=== PATIENT | female | born 1970 | race Two or more races ===

== ENCOUNTER 2024-09-11 09:16 | Outpatient (AMB) | payer OTHER, SELFPAY ==
[2024-09-11 09:48] VITALS: BP 137/87; PULSE 18; RESP 18; TEMP 36.2; O2SAT 98; BMI 24.7
--- NOTE | 2024-09-11 09:48 | AMB.GYNCLNOT ---
Vital Signs 09/11/24 09:48 Height 1.73 m Height Method Stated Weight 73.936 kg Weight Measurement Method Standing Scale BMI 24.7 BP 137/87 H Blood Pressure Source Automatic Cuff Blood Pressure Location Left Upper Arm Position Sitting Respiration 18 Pulse 18 L Pulse Source Monitor Temp 97.2 F Temp Source Oral Pulse Oximetry (%) 98 Oxygen Delivery Method Room Air Allergies/Home Meds Allergies & Medications Allergies No Known Allergies Allergy (Verified 09/11/24 09:49) Medication Reconciliation No Known Home Medications 09/11/24 [History Confirmed 09/11/24] Intake Visit Data Collection New Patient or Established: Established Patient (seen at [facility] within 3 years) Reason for Visit:: Irregular menstrual cycles, bilateral ovarian cysts, low-grade squamous intraepithelial lesion, hematometra Seen by Clinical Staff ONLY (RN/MA): No Lace Inspector Required: No Do You Feel Safe at Home: Yes Authorities Contacted: N/A PCP or OBGYN visit in last 3 months: Yes Hx Now: No Are you currently on any form of Control: No Last menstrual period: 08/20/24 Pain Present Currently: No Pain Scale Used: Villagran-Mohr/Numerical Pain scale:: 0 Smoking Status Smoking Status: Never smoker 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 1. Little interest or pleasure in doing things: not at all 2. Feeling down, depressed, or hopeless: not at all Total score: 0 PHQ-9 3. Trouble falling or staying asleep, or sleeping too much: Not at all 4. Feeling tired or having little energy: Not at all 5. Poor appetite or overeating: Not at all 6. Feeling bad about yourself - or that you are a failure or have let yourself or your family down: Not at all 7. Trouble concentrating on things, such as reading the newspaper or watching television: Not at all 8. Moving or speaking so slowly that other people could have noticed? - Or the opposite - being so fidgety or restless that you have been moving around a lot more than usual: not at all 9. Thoughts that you would be better off or of hurting yourself in some way: Not at all Total score: 0 If you checked off any problems, how difficult have these problems made it for you to do your work, take care of things at home, or get along with other people?: not difficult at all Source: Developed by Drs. Sonu Huber, Tracie Crawford, Alon Ambrosio and colleagues, with an educational jono from [employer]. Depression screen completed yes Social History Living Situation History Marital Status: Lives With: Family Housing: House Tobacco History Smoking Status: Never smoker Second Hand Smoke Exposure: No Alcohol History Alcohol Intake: Never Domestic Abuse History Do You Feel Safe at Home: Yes History of Present Illness HPI Narrative Tati Thornton is a 53-year-old woman referred from [facility] for multiple gynecologic complaints including bilateral ovarian cysts, low-grade squamous intraepithelial lesion, and hematometra. She presents with a history of irregular menstrual cycles. The patient reports experiencing irregular cycles, with almost a year without a period, followed by a very light period in May. Subsequently, she has been experiencing heavy flows with clots. Her last menstrual period started on August 20, 2024, lasted for two weeks, stopped on Wednesday, and she is now spotting. Ms. Thornton's gynecological history is significant. She is 5, para 4, with a history of 4 full-term vaginal deliveries, all uncomplicated. Her menarche occurred at age 11. She is currently sexually active with one partner, with last intercourse on September 09, 2024. She is not using any contraceptives. The patient's medical history includes elevated blood pressure and high cholesterol. She denies a history of cardiovascular disease, diabetes, seizures, or GI problems. She has never smoked, consumes alcohol occasionally, and denies drug use or domestic safety issues. Obstetric History - GTPAL: G5 T4 L4 - history: - 4 full-term vaginal deliveries, all uncomplicated Medical History - Elevated blood pressure - High cholesterol Surgical History - 4 full-term vaginal deliveries, all uncomplicated Social History - Substance Use: Never smoked, consumes alcohol occasionally, no drug use - Sexual History: Currently sexually active with one partner, last intercourse on September 09, 2024 - Contraception: Not on contraceptives - Domestic Safety: No domestic safety issues reported Review of Systems Genitourinary: Positive for irregular menstrual cycles, heavy menstrual flows with clots, and current spotting. Exam General General Appearance: alert, in no apparent distress and healthy appearing Head Head exam: atraumatic Neck Neck exam: Present normal inspection and trachea midline Chest Chest inspection: Present normal inspection and symmetric chest wall rise External exam: Present normal external exam; Absent tenderness Neuro Neurological exam: Present oriented X3 Psych Psychiatric exam: Present normal affect and normal mood Results Objective Laboratory: - Pap smear (05/10/2024): - Low-grade squamous intraepithelial lesion - HPV: Positive for other types, negative for 16 and 18 Imaging: - Ultrasound (09/30/2024): - Uterus: Normal size (8.7 cm length, 4.2 cm AP, 6.1 cm transverse) - Endometrial fluid collection: 1 cm x 0.5 cm central, consistent with hematometra or pyometra - Endometrial stripe: 4 mm - Right ovary: 2 simple cysts (2.4 cm and 1.9 cm) - Left ovary: Normal - No other adnexal cystic structures or masses Office Procedures OB Clinic LOC & Office Proc's Nursing/Assessment Patient Status: Established Patient OB Clinic Nursing Assessment: Medication Reconciliation, Update PMH in EMR and Vital Signs OB Clinic Coordination of Care: Education Complex Pt/Fam, Consent,records obtained, informed consent, Lab and Imaging orders and Staff clarify orders Established Patient Charge Established Patient Point Assignment: 80 Established Patient Point Charge: EP Level 3 (80-115) Assessment & Plan Diagnosis / Problem List (1) Endometrial hyperplasia, unspecified: Status: Acute (2) Excessive bleeding in the premenopausal period: Status: Acute (3) Mild cervical dysplasia: Status: Acute (4) Cervical high risk human papillomavirus (HPV) DNA test positive: Status: Acute (5) Unspecified ovarian cyst, right side: Status: Acute Plan Tati Thornton, 53-year-old female, referred for multiple gynecologic complaints including bilateral ovarian cysts, low-grade squamous intraepithelial lesion, and hematometra, presenting with irregular menstrual cycles and heavy bleeding. Irregular Menstrual Cycles with Hematometra Assessment: Patient reports irregular cycles, including a year without menstruation followed by light bleeding in May and subsequent heavy flows with clots. Most recent menstrual period started on August 20, 2024, lasting 2 weeks, with current spotting. Ultrasound on September 30, 2024, revealed a 1 cm by 0.5 cm central endometrial fluid collection consistent with hematometra or pyometra. The irregular bleeding pattern and ultrasound findings suggest the presence of hematometra, which requires further evaluation and management. Plan: - Schedule procedure in the hospital under anesthesia within the next 2 weeks: - Hysteroscopy to clear out the blood clot and obtain endometrial biopsy - Informed consent: Risks, benefits, and alternatives discussed - Recovery expected to be about 1-2 hours post-procedure - Patient may return to normal activities after recovery - Anticipate resolution of irregular heavy periods following the procedure Low-grade Squamous Intraepithelial Lesion (LSIL) Assessment: Pap smear on May 10, 2024, showed low-grade squamous intraepithelial lesion with positive other HPV types, negative for 16 and 18. This finding requires further evaluation to rule out cervical cancer and determine appropriate management. Plan: - Colposcopy during the scheduled hospital procedure: - Examine the cervix with a magnifying lens - Biopsy any abnormal areas to rule out cancer - Informed consent: Risks, benefits, and alternatives discussed Bilateral Ovarian Cysts Assessment: Ultrasound on September 30, 2024, revealed right ovary with 2 simple cysts (2.4 cm and 1.9 cm), left ovary normal. The cysts are currently small and may not require surgical intervention, but further evaluation is needed to determine their clinical significance. Plan: - Order additional blood tests, including hormone tests - No surgery needed for ovarian cysts unless hormone tests indicate danger - Reassess based on test results Elevated Blood Pressure and High Cholesterol Assessment: Patient reports a history of elevated blood pressure and high cholesterol. These conditions require ongoing management to reduce cardiovascular risk. Plan: - Continue current management (specific medications and dosages not mentioned in transcript) - Monitor blood pressure and cholesterol levels (frequency not specified)
== END 2024-09-11 10:02 | disposition home or self-care (01) ==
LOC: HODSOBC 09:16
PROVIDERS: Supervising Provider Obstetrics & Gynecology; Visit Provider Obstetrics & Gynecology
DX: N87.0 Mild cervical dysplasia (principal); R87.810 Cervical high risk human papillomavirus (HPV) DNA test positive; N83.201 Unspecified ovarian cyst, right side; N92.4 Excessive bleeding in the premenopausal period
CPT/HCPCS: 99213; G0463

== ENCOUNTER 2024-10-25 12:59 | Outpatient (AMB) | payer OTHER, SELFPAY ==
[2024-10-25 13:06] VITALS: BP 166/89; PULSE 92; RESP 17; TEMP 36.2; O2SAT 96; BMI 25.0
--- NOTE | 2024-10-25 13:06 | GYNCLNT_ITS ---
Vital Signs 10/25/24 13:06 Height 1.73 m Height Method Measured Weight 74.843 kg Weight Measurement Method Standing Scale BMI 25.0 BP 166/89 H Blood Pressure Source Automatic Cuff Blood Pressure Location Right Upper Arm Position Sitting Respiration 17 Pulse 92 Pulse Source Monitor Temp 97.1 F Temp Source Temporal Artery Scan Pulse Oximetry (%) 96 Oxygen Delivery Method Room Air Allergies/Home Meds Allergies & Medications Allergies No Known Allergies Allergy (Verified 10/25/24 13:07) Medication Reconciliation amlodipine 2.5 mg tablet 2.5 mg PO QDAY 10/25/24 [History Confirmed 10/25/24] atorvastatin 20 mg tablet 20 mg PO QDAY 10/25/24 [History Confirmed 10/25/24] lisinopril 40 mg tablet 40 mg PO QDAY 10/25/24 [History Confirmed 10/25/24] Intake Visit Data Collection New Patient or Established: Established Patient (seen at [facility] within 3 years) Reason for Visit:: PRE-OP Consent obtained for Telemed Visit: No Seen by Clinical Staff ONLY (RN/MA): No Patch Sander Required: No Do You Feel Safe at Home: Yes Authorities Contacted: N/A PCP or OBGYN visit in last 3 months: Yes Date of Last PCP or OBGYN visit: 09/11/24 Hx Now: No Are you currently on any form of Control: No Last menstrual period: 09/11/24 Pain Present Currently: No Pain Scale Used: Villagran-Mohr/Numerical Pain scale:: 0 Smoking Status Smoking Status: Never smoker 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 Menstrual regularity: irregular Flow: heavy How many days does period last: 14 Age at menarche: 11 Menopausal: No Currently sexually active: Yes DEVELOPMENT MGR: Past Medical History Past Medical History: No Hx Neurological Disorders, Yes Hx Cardiac Disorders, Yes Hx Hypertension, No Hx Cancer, No Hx Blood Disorders, No Hx Gastrointestinal Disorders, No Hx Renal Disease, No Hx Diabetes Mellitus Type 1 and No Hx Diabetes Mellitus Type 2 Questionnaires Covid-19 Vaccine Questionnaire Has patient been vacinated for Covid-19 Have you been vacinated for Covid-19: No PHQ-9 PHQ-2 Over the last 2 weeks, how often have you been bothered by any of the following problems? 1. Little interest or pleasure in doing things: not at all PHQ-9 8. Moving or speaking so slowly that other people could have noticed? - Or the opposite - being so fidgety or restless that you have been moving around a lot more than usual: not at all Source: Developed by Drs. Sonu Huber, Tracie Crawford, Alon Ambrosio and colleagues, with an educational jono from [employer]. Social History Living Situation History Lives With: Family Housing: House Tobacco History Smoking Status: Never smoker Second Hand Smoke Exposure: No Alcohol History Alcohol Intake: Never Domestic Abuse History Do You Feel Safe at Home: Yes History of Present Illness HPI Narrative Presents for scheduled procedure tomorrow. Procedure includes examination for cysts, D&C, and cervical biopsy. Expected duration is approximately 45 minutes. Patient has completed pre-operative preparations, including blood work and registration this morning. Instructed to arrive at hospital at 8:00 AM for 10:00 AM procedure. Patient understands pre-operative process, including IV placement and surgical prep. Expects to return home by approximately 1:00 PM. No additional questions about the procedure at this time. Informed that recovery room nurses can contact family for discharge, avoiding extended wait at hospital. Review of Systems Review of Systems Systems Reviewed: All systems reviewed, normal except as documented Exam General General Appearance: alert, in no apparent distress and healthy appearing Head Head exam: atraumatic Neck Neck exam: Present normal inspection and trachea midline Chest Chest inspection: Present normal inspection and symmetric chest wall rise External exam: Present normal external exam; Absent tenderness Neuro Neurological exam: Present oriented X3 Psych Psychiatric exam: Present normal affect and normal mood Office Procedures OB Clinic LOC & Office Proc's Nursing/Assessment Patient Status: Established Patient OB Clinic Nursing Assessment: Medication Reconciliation, Update PMH in EMR and Vital Signs OB Clinic Coordination of Care: Complex Care and Chronic Disease 1-5, Consent,records obtained, informed consent, 4+ Authorizations needed, Results/Orders obtained and Staff clarify orders Established Patient Charge Established Patient Point Assignment: 100 Established Patient Point Charge: EP Level 3 (80-115) Assessment & Plan Diagnosis / Problem List (1) Unspecified ovarian cyst, right side: Status: Acute (2) Cervical high risk human papillomavirus (HPV) DNA test positive: Status: Acute (3) Mild cervical dysplasia: Status: Acute (4) Excessive bleeding in the premenopausal period: Status: Acute (5) Endometrial hyperplasia, unspecified: Status: Acute Plan Scheduled gynecological procedure Plan: - Perform combined gynecological procedure tomorrow at 10:00 AM: ? Cystoscopy ? Dilation and curettage (D&C) ? Cervical biopsy - Patient to arrive at 8:00 AM for pre-operative preparation - Estimated procedure duration: 45 minutes - Anticipated discharge around 1:00 PM - Recovery room staff to contact patient's family for pick-up when ready for discharge - Follow-up as needed based on procedure findings and biopsy results Pre-operative consultation Plan: - Pre-operative blood work and registration completed this morning - No additional pre-operative tasks mentioned
== END 2024-10-25 13:25 | disposition home or self-care (01) ==
LOC: HODSOBC 12:59
PROVIDERS: PCP Obstetrics & Gynecology; Referring Provider Obstetrics & Gynecology; Supervising Provider Obstetrics & Gynecology; Visit Provider Obstetrics & Gynecology
DX: N83.201 Unspecified ovarian cyst, right side (principal); R87.810 Cervical high risk human papillomavirus (HPV) DNA test positive; N87.0 Mild cervical dysplasia; N92.4 Excessive bleeding in the premenopausal period
CPT/HCPCS: 99213; G0463

== ENCOUNTER 2024-10-26 06:55 | Day surgery (SDC) | payer OTHER, SELFPAY ==
[2024-10-25 07:10] VITALS: BMI 26.6
--- NOTE | 2024-10-25 07:26 | EKG_ITS ---
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
[2024-10-25 07:53] LABS: Basophils # (Auto) 0.0 Thou/mm3 (0.0-0.2); Basophils % (Auto) 1 % (0-2.5); Eosinophils # (Auto) 0.2 Thou/mm3 (0.0-0.5); Eosinophils % (Auto) 4 % (0-10); Hematocrit 41.6 % (36.0-46.0); Hemoglobin 14.8 g/dL (12.0-16.0); Immature Granulocytes Auto 0.04 Thou/mm3 (0.00-0.00); Lymphocytes # (Auto) 2.1 Thou/mm3 (1.0-4.8); Lymphocytes % (Auto) 35 % (10-50); Mean Corpuscular HGB Conc 35.6 g/dl (31.0-37.0); Mean Corpuscular Hemoglobin 32.3 pg (25.0-35.0); Mean Corpuscular Volume 91 fL (80-100); Monocytes # (Auto) 0.5 Thou/mm3 (0.0-0.8); Monocytes % (Auto) 9 % (0-12); Neutrophils # (Auto) 3.1 Thou/mm3 (1.8-7.7); Neutrophils % (Auto) 52 % (37-80); Nucleated Red Blood Cell # 0.00 Thou/mm3 (0.00-0.00); Nucleated Red Blood Cell % 0 /100 WBC (0); Platelet Count 290 Thou/mm3 (140-440); RDW Standard Deviation 40.7 fL (36.4-46.3); Red Blood Count 4.58 Miln/mm3 (4.00-5.20); White Blood Count 5.9 Thou/mm3 (3.6-11.0)
[2024-10-25 08:03] LABS: HCG,Qualitative Serum Negative
[2024-10-25 08:11] LABS: Alanine Aminotransferase 21 U/L (10-49); Albumin, Serum 4.6 gm/dL (3.5-5.0); Albumin/Globulin Ratio 1.7 (1.2-2.2); Alkaline Phosphatase 59 U/L (46-116); Anion Gap 7 (7-16); Aspartate Amino Transferase 25 U/L (0-34); BUN/Creatinine Ratio 10 Ratio (12-20); Bilirubin,Total 1.8 mg/dL (0.3-1.2); Blood Urea Nitrogen 10 mg/dL (9-23); Calcium 9.5 mg/dL (8.3-10.6); Calcium (Corrected) 9.5 mg/dL (8.5-10.1); Carbon Dioxide 27.7 mMol/L (20.0-31.0); Chloride 107 mMol/L (98-107); Creatinine (Component) 1.0 mg/dL (0.6-1.3); Estimated Creatinine Clearance 65.8 mL/min (>60); Globulin 2.7 gm/dL (2.3-3.5); Glucose 104 mg/dL (74-106); Osmolality,Calculated 282 (275-295); Potassium 4.4 mMol/L (3.4-5.1); Sodium 142 mMol/L (136-145); Total Protein 7.3 gm/dL (5.7-8.2); eGFR > 60 See Note
--- NOTE | 2024-10-25 15:02 | SUR.PREOP ---
Pt notified to come in at 0700 tomorrow.
[2024-10-26] VITALS (9 sets, daily range): BP systolic 116–146; BP diastolic 74–92; PULSE 60–73; RESP 14–18; TEMP 36.4–37.2; O2SAT 98–100; BMI 26.4
--- NOTE | 2024-10-26 08:39 | PD.GYNPROC ---
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 Procedure Date of procedure: 10/26/24 Procedure Performed: Diagnostic laparoscopy Diagnostic hysteroscopy with endometrial sampling Colposcopic biopsy of cervix Indication: 54-year-old with right ovarian cyst and right lower quadrant pain Abnormal uterine bleeding with endometrial fluid collection Low-grade squamous lesion of cervix with high-grade HPV positive Post-Op diagnosis: No ovarian cysts identified Endocervical polyps Stenotic cervical canal No appreciable endometrial cavity Hemorrhage at mesenteric entry site, controlled Anesthesia type: General Procedure description: Informed consent was obtained. The patient was brought to the operating room, identified using two patient identifiers, and placed in the dorsal lithotomy position. General anesthesia was administered. The abdomen and perineum were prepped and draped in the usual sterile fashion. A Sanders catheter was inserted for bladder drainage. A 5 mm infraumbilical skin incision was made, and entry into the peritoneal cavity was accomplished under direct visualization using an Optiview trocar. Pneumoperitoneum was established to 15 mmHg. A secondary 5 mm port was placed in the left lower quadrant, approximately 2 cm medial and superior to the anterior superior iliac spine. Upon entry, no adnexal cysts were identified. Both ovaries appeared grossly normal. A small area of hemorrhage from the mesentery was noted near the laparoscopic entry site, likely related to trocar insertion. This was managed with gentle suctioning and application of Surgicel, achieving hemostasis. The laparoscopic ports were removed under direct vision, and the peritoneal cavity was evacuated. Attention was then turned to the hysteroscopic portion of the procedure. A hysteroscope was introduced under direct visualization after cervical dilation. The cervical canal was found to be extremely stenotic and narrow, and no appreciable endometrial cavity was visualized. Multiple endocervical polyps were noted and removed. Endometrial sampling was performed using curettage. A loop electrosurgical electrode was used to obtain a Biopsy of the cervical transformation zone, targeting the area of LSIL. Hemostasis was achieved using ball tip electrocautery. All instruments were removed. The patient was undraped, extubated, and transferred to the recovery room in stable and awake condition. Estimated blood loss (ml): 25 Complications: none Surgical staff Operation Date: 10/26/24 09:00 <No data on this case meets the specified criteria> Diagnosis Discharge Diagnosis (1) Other acute postprocedural pain: Status: Acute (2) Unspecified ovarian cyst, right side: Status: Acute (3) Cervical high risk human papillomavirus (HPV) DNA test positive: Status: Acute (4) Mild cervical dysplasia: Status: Acute (5) Excessive bleeding in the premenopausal period: Status: Acute (6) Endometrial hyperplasia, unspecified: Status: Acute Problem List Completed Was Problem List Reviewed/Reconciled?: Yes
--- NOTE | 2024-10-26 10:17 | SUR.PHASEI ---
1000: Pt received in [facility] via gurney. Report from Ariadne RAMIREZ and Dr. Jordan. Pt groggy. Easily aroused with eye opening then drifts back to sleep. Resp even, unlabored. VS stable. Surgical sites x2 to abdomen secured with dermabond. Sites without swelling, discoloration. Peripad has small amount of pale red drainage. No complaints of pain, discomfort.
--- NOTE | 2024-10-26 10:26 | SUR.PHASEI ---
1025: Pt resting with no complaints voiced. Resp even, unlabored. VS stable. Surgical sites remain dry, clean, intact with no swelling, discoloration. Peripad continues to have small amount of pale red drainage.
--- NOTE | 2024-10-26 10:47 | SUR.PHASEII ---
1037: Pt more awake, alert. Resp even, unlabored. VS stable. Surgical sites remain dry, intact. No swelling, discoloration to areas. Denies pain. Sitting up tolerating po fluids with no difficulty swallowing and no n/v.
--- NOTE | 2024-10-26 11:47 | SUR.PHASEII ---
1117: Pt fully awake, oriented x3. VS stable. Denies pain. Surgical sites intact with no swelling, discoloration. Small amount of vaginal bleeding on peripad. Clean pad provided. Pt dressed. Assisted to transport chair. Ambulation steady. Pt and daughter stated understanding of discharge instructions. Pt also instructed to clam picker her prescription at [facility] on [address]. Pt discharged from [facility] in stable condition.
== END 2024-10-26 11:17 | disposition home or self-care (01) ==
PROVIDERS: PCP Physician Assistant; Referring Provider Obstetrics & Gynecology; Visit Provider Obstetrics & Gynecology
PROC: (CPT 58558; principal; 2024-10-26 08:45)
DX: N84.1 Polyp of cervix uteri (principal); N85.00 Endometrial hyperplasia, unspecified; R87.810 Cervical high risk human papillomavirus (HPV) DNA test positive; G89.18 Other acute postprocedural pain; N87.0 Mild cervical dysplasia; Z01.810 Encounter for preprocedural cardiovascular examination; N88.2 Stricture and stenosis of cervix uteri
CPT/HCPCS: 58558; 36415; 80053; 84703; 85025; 86850; 86900; 86901; 93005; A4217; A4649; J0131; J0690; J1100; J1885; J2250; J2405; J2704; J3010; J3490